=== PATIENT | male | born 1965 | race Caucasian/White ===

== ENCOUNTER 2023-01-25 08:40 | Day surgery (SDC) | payer BC, SELFPAY ==
[2023-01-25] VITALS (18 sets, daily range): BP systolic 133–191; BP diastolic 90–118; PULSE 61–82; RESP 16–18; TEMP 36.3–36.6; O2SAT 95–98; BMI 27.3
[2023-01-25] MEDS: LACTATED RINGERS 1000 ML 1,000 ML 100 ML IV (08:55)
[2023-01-25] MEDS: SODIUM CHLORIDE 0.9 % (FLUSH) 10 ML SYRINGE IVF (08:55)
[2023-01-25] MEDS: BUPIVACAINE 0.5%/EPINEPHRINE 0.9 MG (30.9 ML) INJECTION (09:00)
[2023-01-25] MEDS: OXYMETAZOLINE 0.05% NASAL SPRAY 2 SPRAY NOSTRIL-B (09:20)
--- NOTE | 2023-01-25 10:26 | SUR.OPER ---
PATIENT QUESTIONS ANSWERED SATISFACTORILY PREOPERATIVELY. PATIENT BROUGHT TO OR #1 PER CART. Patient positioned supine on OR #1 bed. Perioperative team wrapped arms bilaterally at patient side with drawsheet. ? Final approval of positioning by surgeon.
--- NOTE | 2023-01-25 10:29 | W.ANESCHARGE ---
Anesthesia Charges Start Date/Time Anesthesia Start Date: 01/25/23 Anesthesia Start Time: 10:42 Stop Date/Time Anesthesia Stop Date: 02/20/23 Anesthesia Stop Time: 11:31
[2023-01-25] MEDS: COCAINE HCL 4 % 4 ML SOLUTION NOSTRIL-B (10:53)
[2023-01-25] MEDS: BUPIVACAINE 0.5 %/EPI 1:200K 3 ML INJECTION (10:55)
[2023-01-25] MEDS: MUPIROCIN 1 GM PACKET 1 APPLIC TOPICAL (11:07)
--- NOTE | 2023-01-25 11:32 | W.ANESCHARGE ---
Anesthesia Charges Start Date/Time Anesthesia Start Date: 01/25/23 Anesthesia Start Time: 10:42 Stop Date/Time Anesthesia Stop Date: 02/20/23 Anesthesia Stop Time: 11:31
--- NOTE | 2023-01-25 11:49 | W.PM.ENTPROC ---
Procedure Note Date of procedure: 01/25/23 Procedure: Preoperative diagnosis nasal obstruction deviated septum inferior turbinate hypertrophy Postoperative diagnosis same Procedure nasal septoplasty, submucous resection partial left inferior turbinate Under general endotracheal anesthesia patient was prepped and draped in usual fashion the nose injected and decongested. A right hemitransfixion incision was made bilateral anterior and posterior tunnels were created. 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 A vertical incision was made to the cartilage in the posterior deflected portions of septal bone were resected a large piece was trimmed and returned to the intraseptal space. Stab incision was made in the anterior left inferior turbinate a tunnel created with a Jarrod dissector. The madalyn bone was outfractured and a conservative anterior submucous resection was performed. The Coblation Wand was used to cauterize intramurally along the inferior 10%. The hemitransfixion was closed with 2 4-0 chromic sutures and silastic stents secured with 3-0 nylon. Merocel packing coated with Bactroban was placed in each side of the nose above the stents. The patient procedure well was taken recovery in satisfactory condition. Blood loss less than 25 mL. Surgeon: Giovany Capone MD
[2023-01-25] MEDS: LABETALOL HCL 5 MG/ML inj IVP (12:09)
[2023-01-25] MEDS: HYDRALAZINE HCL 20 MG/ML inj 10 MG IVP (12:35)
== END 2023-01-25 13:38 | disposition home or self-care (01) ==
PROVIDERS: PCP Physician Assistant Medical; Visit Provider Otolaryngology
PROC: (CPT 30520; principal; 2023-01-25 10:00)
DX: J34.2 Deviated nasal septum (principal); J34.3 Hypertrophy of nasal turbinates
CPT/HCPCS: 30520; 30140; 00160; A9270; J0330; J0360; J1100; J2250; J2405; J2704; J3010; J3490; J7120